=== PATIENT | female | born 1995 | race Caucasian/White ===

== ENCOUNTER → 2023-06-26 | Outpatient (CLI) | payer OTHER ==
--- NOTE | 2023-06-26 14:37 | Diagnostic Imaging Report ---
EXAMINATION: Bilateral knees 3 views HISTORY: Knee pain COMPARISON: None available. FINDINGS: The alignment of both knees is normal. No fracture is seen in either knee. Joint spaces are normal. No effusion. IMPRESSION: 1. Normal bilateral knees. Dictated by: Dictated on workstation # [id number]
== END ==
LOC: ORTHO 12:45
PROVIDERS: ATTEND Orthopaedic Surgery
DX: M25.561 Pain in right knee (principal); M25.562 Pain in left knee
CPT/HCPCS: 73562; G0463; 99203